=== PATIENT | female | born 1965 | race Caucasian/White ===

== ENCOUNTER → 2020-05-22 | Outpatient (CLI) | payer BC, OTHER | LOC: ULTRA 10:11 | PROVIDERS: ATTEND Family Medicine | DX: N32.89 Other specified disorders of bladder (principal); D41.4 Neoplasm of uncertain behavior of bladder; R14.0 Abdominal distension (gaseous) ==

== ENCOUNTER → 2020-05-27 | Outpatient (CLI) | payer BC, OTHER | LOC: CAT 13:25 | PROVIDERS: ATTEND Family Medicine | DX: K57.30 Diverticulosis of large intestine without perforation or abscess without bleeding (principal); R93.5 Abnormal findings on diagnostic imaging of other abdominal regions, including retroperitoneum ==